=== PATIENT | female | born 1970 | race American Indian/Alaskan Native ===

== ENCOUNTER 2019-08-16 08:28 | Outpatient (CLI) | payer OTHER ==
--- NOTE | 2019-08-16 13:54 | Ultrasound Report ---
BILATERAL DIGITAL DIAGNOSTIC MAMMOGRAM WITH CAD 08/16/2019 BILATERAL COMPLETE BREAST ULTRASOUND INDICATION: History of stage IV left breast cancer. She has been treated and imaged at [place] since 2 018. TECHNIQUE: Digital bilateral mammographic imaging was performed. Spot compression views were obtaine d. Complete ultrasound of all four (4) quadrants was performed. This examination was interpreted with the benefit of Computer-Aided Detection (CAD) analysis. COMPARISON: 2017 and 2013 mammograms from [place] and [facility] mammogram from 11/16/2013. FINDINGS: Breast Density: The breasts are heterogeneously dense, which may obscure small masses. MAMMOGRAPHIC FINDINGS: There is no evidence of dominant mass, suspicious calcifications or architectu ral distortion in either breast. ULTRASOUND FINDINGS: Complete sonographic evaluation of all 4 quadrants and retroareolar region was p erformed. Ultrasound of the right breast demonstrated normal structures with no mass, cyst or suspicious shadow ing. Ultrasound of the left breast demonstrated an oval solid hypoechoic mass at 4:00 2 cm from the n ipple measuring 1.4 x 1.7 x 0.4 cm. Portions of the margins are relatively smooth and portions are mi ldly lobular. The mass extends into a prominent duct. A second prominent duct extends peripherally an d connects to a second solid mass at 4:00 2 cm from the nipple measuring 1.0 x 0.4 x 0.8 cm. This mas s has similar morphology as to the larger mass at 4:00. An irregular solid hypoechoic mass at 9:00 at the edge of the areola measures 0.8 x 0.5 x 0.4 cm. No other mass of the left breast. However, ultra sound of the left axilla demonstrated an abnormal lymph node with no central fat. It measures 2.0 x 1 .3 x 2.2 cm. IMPRESSION: 1. 3 left breast masses which are suspicious for residual tumor which may or may not have been adequa tely treated. This is hard to determine considering that I have no baseline imaging. Consider MRI for a more complete evaluation of the left breast if it is clinically indicated. 2. Abnormal left axillary lymph node suspicious for left axillary shimon metastasis. 3. Negative right breast. Follow up recommendation: Clinical exam BI-RADS Category 6: Known Biopsy-Proven Malignancy. A "normal" or negative report should not discourage follow up or biopsy of a clinically significant f inding. A written summary of these findings will be mailed to the patient. The patient will be entered into a mammography reporting system which will generate a reminder letter for the patient's next appointmen t at the appropriate interval. According to the [employer], yearly mammograms are recommended starting at age 40 and continuing as long as a woman is in good health. Breast MRI is recommended for women with an charu roximately 20-25% or greater lifetime risk of breast cancer, including women with a strong family his tory of breast or ovarian cancer and women who have been treated for Hodgkin's disease. Signer Name: Angel Sprague MD Signed: 08/16/2019 1:50 PM Workstation Name: [id number]
== END 2019-08-16 08:29 | disposition home or self-care (01) ==
LOC: SPVWC 08:28
PROVIDERS: ATTEND Internal Medicine Hematology & Oncology
DX: C50.812 Malignant neoplasm of overlapping sites of left female breast (principal); N63.23 Unspecified lump in the left breast, lower outer quadrant; N63.42 Unspecified lump in left breast, subareolar; Z85.3 Personal history of malignant neoplasm of breast
CPT/HCPCS: 77066